=== PATIENT | male | born 1995 | race American Indian/Alaskan Native ===

== ENCOUNTER 2022-02-04 02:15 | Emergency (ER) | payer SELFPAY ==
[2022-02-04] MEDS ORDERED: diphenhydrAMINE 50 MG/ML VIAL IM ONE (03:31)
[2022-02-04] MEDS ORDERED: ZIPRASIDONE MESYLATE 20 MG VIAL IM ONE (03:31)
[2022-02-04] MEDS ORDERED: WATER FOR INJ Sterile (PF) 10 ML ONE (03:36)
--- NOTE | 2022-02-04 05:17 | Emergency Department Report ---
ED Psych HPI - General Chief Complaint: Psych Stated Complaint: HEADACHE Time Seen by Provider: 02/04/22 04:56 Source: patient, EMS Mode of arrival: Stretcher Limitations: Other - History of Present Illness Initial Comments: 26-year-old homeless male with a past medical history of bipolar and schizophrenia presents to the hospital with complaints of suicidal ideation. Patient threatened to strangle himself with his shoelaces. He was just discharged for consult mental health facility yesterday. Patient was initially cooperative but once placed in isolation became combative and started kicking, cursing, screaming at the door and cannot be de-escalated. Therefore, patient received IM Geodon and Benadryl for safety of patient and staff - Related Data Allergies Allergy/AdvReac Type Severity Reaction Status Date / Time No Known Allergies Allergy Unverified 02/04/22 03:16 ED Review of Systems ROS: Stated complaint: HEADACHE Other details as noted in HPI Comment: Unobtainable due to pts medical conditions ED Past Medical Hx - Past Medical History Previous Medical History?: Yes Hx Psychiatric Treatment: Yes (Bipolar, Schizophrenia) - Surgical History Past Surgical History?: No - Social History Smoking Status: Never Smoker Substance Use Type: None ED Physical Exam - General Limitations: No Limitations - Other Other exam information: General: No acute distress Head: Atraumatic Eyes: normal appearance ENT: Moist mucous membranes Neck: Normal appearance, no midline tenderness Chest: Clear to auscultation bilaterally CV: Regular rate and rhythm Abdomen: Soft, normal bowel sounds, nontender, nondistended, no rebound or gu arding Back: Normal inspection Extremity: Normal inspection, full range of motion Neuro: Alert O x 3, no facial asymmetry, speech clear, no gross motor sensory deficit Psych: Combative aggressive behavior Skin: No rash ED Course Vital Signs 02/04/22 02/04/22 02/04/22 02:15 03:15 04:15 Temperature 97.2 F L 98.3 F 98.3 F Pulse Rate 99 H 94 H 94 H Respiratory 18 18 18 Rate Blood Pressure 140/80 Blood Pressure 140/79 140/79 [Right] O2 Sat by Pulse 99 96 96 Oximetry 02/04/22 02/04/22 02/04/22 10:51 10:52 20:57 Temperature 98.1 F 97.7 F Pulse Rate 82 83 Respiratory 18 18 18 Rate Blood Pressure Blood Pressure 106/82 112/60 [Right] O2 Sat by Pulse 97 97 98 Oximetry 02/05/22 13:28 Temperature 97.6 F Pulse Rate 70 Respiratory 18 Rate Blood Pressure Blood Pressure 126/85 [Right] O2 Sat by Pulse 99 Oximetry ED Medical Decision Making - Lab Data Result diagrams: 02/04/22 05:16 02/04/22 05:16 Lab Results 02/04/22 02/04/22 02/04/22 Range/Units 05:16 05:16 05:16 WBC 9.7 (4.5-11.0) K/mm3 RBC 4.75 (3.65-5.03) M/mm3 Hgb 13.6 (11.8-15.2) gm/dl Hct 40.7 (35.5-45.6) % MCV 86 (84-94) fl MCH 29 (28-32) pg MCHC 33 (32-34) % RDW 14.7 (13.2-15.2) % Plt Count 241 (140-440) K/mm3 Lymph % (Auto) 23.6 (13.4-35.0) % [place] % (Auto) 8.4 H (0.0-7.3) % Eos % (Auto) 0.9 (0.0-4.3) % Baso % (Auto) 0.2 (0.0-1.8) % Lymph # (Auto) 2.3 (1.2-5.4) K/mm3 [place] # (Auto) 0.8 (0.0-0.8) K/mm3 Eos # (Auto) 0.1 (0.0-0.4) K/mm3 Baso # (Auto) 0.0 (0.0-0.1) K/mm3 Seg Neutrophils % 66.9 (40.0-70.0) % Seg Neutrophils # 6.5 (1.8-7.7) K/mm3 Sodium 140 (137-145) mmol/L Potassium 4.2 (3.6-5.0) mmol/L Chloride 101.4 (98-107) mmol/L Carbon Dioxide 25 (22-30) mmol/L Anion Gap 18 mmol/L BUN 17 (9-20) mg/dL Creatinine 0.9 (0.8-1.3) mg/dL Estimated GFR > 60 ml/min BUN/Creatinine Ratio 19 % Glucose 116 H (75-100) mg/dL Calcium 9.4 (8.4-10.2) mg/dL Urine Color (Yellow) Urine Turbidity (Clear) Specific [place] (Man) (1.003-1.030) Ur Protein (Man) (Negative) mg/dL Ur Ketones (Man) (Negative) Ur Nitrite (Man) (Negative) Ur Reducing Substances Urine Bilirubin (Man) (Negative) Urine Ictotest Leukocyte Esterase (Man) (Negative) Urine WBC (Auto) (0.0-6.0) /HPF Urine RBC (Auto) (0.0-6.0) /HPF U Epithel Cells (Auto) (0-13.0) /HPF Urine RBC (Manual) (Negative) Urine Mucus /HPF Salicylates < 0.3 L (2.8-20.0) mg/dL Urine Opiates Screen Urine Methadone Screen Acetaminophen (10.0-30.0) ug/mL Ur Barbiturates Screen Ur Phencyclidine Scrn Ur Amphetamines Screen U Benzodiazepines Scrn Urine Cocaine Screen U Marijuana (THC) Screen Drugs of Abuse Note Plasma/Serum Alcohol (0-0.07) % SARS-CoV-2 (PCR) (Negative) 02/04/22 02/04/22 02/04/22 Range/Units 05:16 05:16 10:51 WBC (4.5-11.0) K/mm3 RBC (3.65-5.03) M/mm3 Hgb (11.8-15.2) gm/dl Hct (35.5-45.6) % MCV (84-94) fl MCH (28-32) pg MCHC (32-34) % RDW (13.2-15.2) % Plt Count (140-440) K/mm3 Lymph % (Auto) (13.4-35.0) % [place] % (Auto) (0.0-7.3) % Eos % (Auto) (0.0-4.3) % Baso % (Auto) (0.0-1.8) % Lymph # (Auto) (1.2-5.4) K/mm3 [place] # (Auto) (0.0-0.8) K/mm3 Eos # (Auto) (0.0-0.4) K/mm3 Baso # (Auto) (0.0-0.1) K/mm3 Seg Neutrophils % (40.0-70.0) % Seg Neutrophils # (1.8-7.7) K/mm3 Sodium (137-145) mmol/L Potassium (3.6-5.0) mmol/L Chloride (98-107) mmol/L Carbon Dioxide (22-30) mmol/L Anion Gap mmol/L BUN (9-20) mg/dL Creatinine (0.8-1.3) mg/dL Estimated GFR ml/min BUN/Creatinine Ratio % Glucose (75-100) mg/dL Calcium (8.4-10.2) mg/dL Urine Color Yellow (Yellow) Urine Turbidity Cloudy (Clear) Specific [place] (Man) 1.020 (1.003-1.030) Ur Protein (Man) 1+ (Negative) mg/dL Ur Ketones (Man) Negative (Negative) Ur Nitrite (Man) Negative (Negative) Ur Reducing Substances Not Reportable Urine Bilirubin (Man) Negative (Negative) Urine Ictotest Not Reportable Leukocyte Esterase (Man) Negative (Negative) Urine WBC (Auto) < 1.0 (0.0-6.0) /HPF Urine RBC (Auto) < 1.0 (0.0-6.0) /HPF U Epithel Cells (Auto) 1.0 (0-13.0) /HPF Urine RBC (Manual) Negative (Negative) Urine Mucus Few /HPF Salicylates (2.8-20.0) mg/dL Urine Opiates Screen Urine Methadone Screen Acetaminophen 5.0 L (10.0-30.0) ug/mL Ur Barbiturates Screen Ur Phencyclidine Scrn Ur Amphetamines Screen U Benzodiazepines Scrn Urine Cocaine Screen U Marijuana (THC) Screen Drugs of Abuse Note Plasma/Serum Alcohol < 0.01 (0-0.07) % SARS-CoV-2 (PCR) (Negative) 02/04/22 02/04/22 Range/Units 10:51 10:51 WBC (4.5-11.0) K/mm3 RBC (3.65-5.03) M/mm3 Hgb (11.8-15.2) gm/dl Hct (35.5-45.6) % MCV (84-94) fl MCH (28-32) pg MCHC (32-34) % RDW (13.2-15.2) % Plt Count (140-440) K/mm3 Lymph % (Auto) (13.4-35.0) % [place] % (Auto) (0.0-7.3) % Eos % (Auto) (0.0-4.3) % Baso % (Auto) (0.0-1.8) % Lymph # (Auto) (1.2-5.4) K/mm3 [place] # (Auto) (0.0-0.8) K/mm3 Eos # (Auto) (0.0-0.4) K/mm3 Baso # (Auto) (0.0-0.1) K/mm3 Seg Neutrophils % (40.0-70.0) % Seg Neutrophils # (1.8-7.7) K/mm3 Sodium (137-145) mmol/L Potassium (3.6-5.0) mmol/L Chloride (98-107) mmol/L Carbon Dioxide (22-30) mmol/L Anion Gap mmol/L BUN (9-20) mg/dL Creatinine (0.8-1.3) mg/dL Estimated GFR ml/min BUN/Creatinine Ratio % Glucose (75-100) mg/dL Calcium (8.4-10.2) mg/dL Urine Color (Yellow) Urine Turbidity (Clear) Specific [place] (Man) (1.003-1.030) Ur Protein (Man) (Negative) mg/dL Ur Ketones (Man) (Negative) Ur Nitrite (Man) (Negative) Ur Reducing Substances Urine Bilirubin (Man) (Negative) Urine Ictotest Leukocyte Esterase (Man) (Negative) Urine WBC (Auto) (0.0-6.0) /HPF Urine RBC (Auto) (0.0-6.0) /HPF U Epithel Cells (Auto) (0-13.0) /HPF Urine RBC (Manual) (Negative) Urine Mucus /HPF Salicylates (2.8-20.0) mg/dL Urine Opiates Screen Negative Urine Methadone Screen Negative Acetaminophen (10.0-30.0) ug/mL Ur Barbiturates Screen Negative Ur Phencyclidine Scrn Negative Ur Amphetamines Screen Negative U Benzodiazepines Scrn Negative Urine Cocaine Screen Negative U Marijuana (THC) Screen Positive Drugs of Abuse Note Disclamer Plasma/Serum Alcohol (0-0.07) % SARS-CoV-2 (PCR) Negative (Negative) - Medical Decision Making 26-year-old male with homelessness, bipolar, and schizophrenia presents to the hospital with suicidal ideation and combative behavior after ED arrival. Patient treated with IM sedation. 1013 has been signed. Patient awaiting mental health evaluation to determine placement and disposition Labs results pending and urine collection pending. Signed to Dr. Lawton to follow results for medical clearance Critical Care Time: No Critical care attestation.: If time is entered above; I have spent that time in minutes in the direct care of this critically ill patient, excluding procedure time. ED Disposition Clinical Impression: Suicidal ideations, Schizophrenia Disposition: 30 STILL A PATIENT Is pt being admited?: No Condition: Stable Time of Disposition: 05:53
[2022-02-04 05:45] LABS: Basophils % (Auto) 0.2 % (0.0-1.8); Eosinophils # (Auto) 0.1 K/mm3 (0.0-0.4); Eosinophils % (Auto) 0.9 % (0.0-4.3); Hematocrit 40.7 % (35.5-45.6); Hemoglobin 13.6 gm/dl (11.8-15.2); Lymphocytes # (Auto) 2.3 K/mm3 (1.2-5.4); Lymphocytes % (Auto) 23.6 % (13.4-35.0); Mean Corpuscular HGB Conc 33 % (32-34); Mean Corpuscular Volume 86 fl (84-94); Monocytes # (Auto) 0.8 K/mm3 (0.0-0.8); Monocytes % (Auto) 8.4 % (0.0-7.3); Platelet Count 241 K/mm3 (140-440); Red Blood Count 4.75 M/mm3 (3.65-5.03); Red Cell Distribution Width 14.7 % (13.2-15.2)
[2022-02-04 06:04] LABS: BUN/Creatinine Ratio 19; Blood Urea Nitrogen 17 mg/dL (9-20); Calcium 9.4 mg/dL (8.4-10.2); Hemolysis Index 6
--- NOTE | 2022-02-04 09:40 | Consultation ---
History of Present Illness - Reason for Consult Consult date: 02/04/22 Reason for consult: suicidal ideation - History of Present Psychiatric Illness 26-year-old homeless male with a past medical history of bipolar and schizophrenia presents to the hospital with complaints of suicidal ideation. Patient threatened to strangle himself with his shoelaces. He was just discharged for consult mental health facility yesterday. Patient was initially cooperative but once placed in isolation became combative and started kicking, cursing, screaming at the door and cannot be de-escalated. Therefore, patient received IM Geodon and Benadryl for safety of patient and staff. The patient was seen today. The patient is calm and cooperative. He endorses ongoing depression and suicidal ideation x1 week with a plan to " tie some rope on my neck." He also admits having auditory hallucinations "voices saying to hurt myself." He denies visual hallucinations. PAST PSYCHIATRIC HISTORY: Diagnoses: Schizophrenia, Bipolar Suicide attempts or Self-harm behavior: Yes Prior psychiatric hospitalizations:Yes Substance Abuse history: Marijuana Previous psychiatric medications tried: Sean Mabry Outpatient treatment: Unknown PAST MEDICAL HISTORY: Family Psychiatric History: None reported SOCIAL HISTORY Marital Status: Single Living Arrangements: Lives alone Employment Status: Unemployed Access to guns/weapons: Denies Education: 10th grade History of Abuse: Denies Legal History: Unknown REVIEW OF SYSTEMS Constitutional: Negative for weight loss ENT: Negative for stridor Respiratory: Negative for cough or hemoptysis All other systems reviewed and are negative MENTAL STATUS General Appearance and Behavior: age appropriate, good eye contact, cooperative, Cooperation: Cooperative Psychomotor Behavior: within normal limits Mood: Depressed Affect and affective range: Congruent with stated mood Thought Process: goal directed Thought Content: suicidal/hallucinations Speech: Normal volume and Regular rate and rhythm Suicidal Ideation: Yes Homicidal Ideation: Denies HI Hallucinations: Auditory Impulse Control: intact Insight and Judgment: Limited Memory: Limited Attention: Distracted Orientation: alert and oriented x4 Assessment Schizophrenia Treatment Plan 1013 Continue home medications Zyprexa 5mg po BID Trazodone 50mg po QHS The patient is to get first dose of meds prior to leaving. Benefits and possible SE were explained to patient. She verbalizes understanding. Risks, benefits and alternatives of medications discussed with the patient, questions answered and consent obtained from patient. PSYCHOTHERAPY: Supportive psychotherapy provided MEDICAL: Per primary team DELIRIUM PRECAUTIONS: Please re-orient patient frequently, keep lights on during the day, and minimize benzodiazepines and opiates as these medications could worsen patient's confusion. ZOOLOGY TECHNICAL OFFICER: Defer to primary DISPOSITION: Recommend acute inpatient psychiatric hospitalization at this time. FOLLOW-UP: Will follow. Thank you for the consult. Please contact with any questions and/or concerns Case discussed with Dr. Montgomery who agrees with current disposition Medications and Allergies Allergies Allergy/AdvReac Type Severity Reaction Status Date / Time No Known Allergies Allergy Unverified 02/04/22 03:16 Mental Status Exam - Vital signs Last Vital Signs Temp 98.3 F 02/04/22 04:15 Pulse 94 H 02/04/22 04:15 Resp 18 02/04/22 04:15 BP 140/79 02/04/22 04:15 Pulse Ox 96 02/04/22 04:15 Results Result Diagrams: 02/04/22 05:16 02/04/22 05:16 Abnormal lab results 02/04/22 02/04/22 02/04/22 Range/Units 05:16 05:16 05:16 [place] % (Auto) 8.4 H (0.0-7.3) % Glucose 116 H (75-100) mg/dL Salicylates < 0.3 L (2.8-20.0) mg/dL Acetaminophen (10.0-30.0) ug/mL 02/04/22 Range/Units 05:16 [place] % (Auto) (0.0-7.3) % Glucose (75-100) mg/dL Salicylates (2.8-20.0) mg/dL Acetaminophen 5.0 L (10.0-30.0) ug/mL All other labs normal.
[2022-02-04 11:17] LABS: Amphetamine Screen,Urine Negative; Benzodiazepines Screen,Urine Negative; Cocaine Screen,Urine Negative; Methadone Screen,Urine Negative; Opiate Screen,Urine Negative
[2022-02-04 11:30] LABS: Cannabinoid Screen,Urine Positive
[2022-02-04 11:33] LABS: Mucus,Urine FEW /HPF; RBC,Urine < 1.0 /HPF (0.0-6.0); WBC,Urine < 1.0 /HPF (0.0-6.0)
[2022-02-04 11:35] LABS: Color,Urine Yellow (Yellow)
--- NOTE | 2022-02-04 11:36 | Event Note ---
Date: 02/04/22 vss , medically cleared pending UA , assessed by psych , continue 1013 , awaiting psych placement
[2022-02-04] MEDS ORDERED: traZODone 50 MG TAB PO SCH (22:00)
--- NOTE | 2022-02-05 12:46 | Event Note ---
Date: 02/05/22 S: 26-year-old Mpresents for evaluation of suicidal ideation. [address] Mendieta who evaluated the patient and medically cleared him. Objective: Vitals are stable. Adult male, ambulating with normal steady gait; moving all extremities, no acute distress, no drooling no stridor, no respiratory distress, nontoxic- appearing Assessment: 26 yo M presents for evaluation of suicidal ideation. He was medically cleared by the aforementioned to ER provider. The patient was placed on a 1013 hold. Psychiatry/mental health consult was placed. Plan: Disposition per psychiatry: pt will await inpatient psychiatry placement
[2022-02-05 13:39] VITALS: BP 126/85
== END 2022-02-05 19:14 | disposition still patient (30) ==
LOC: ED 02:15 → EEVIPCON 02:15 → ED 02-05 19:14
DX: R45.851 Suicidal ideations (principal); F20.9 Schizophrenia, unspecified; Z20.822 Contact with and (suspected) exposure to COVID-19
CPT/HCPCS: 36415; 80048; 80307; 81001; 85025; 96372; 99285; J1200; J3486; U0003; 80320; G0480